=== PATIENT | female | born 2000 | race Caucasian/White ===

== ENCOUNTER → 2021-02-02 | Outpatient (CLI) | payer SELFPAY ==
[2021-02-02 16:40] LABS: HEMATOCRIT 43 % (35-52); HEMOGLOBIN 14.6 g/dL (11.5-16.0); MEAN CORPUSCULAR HEMOGLOBIN 30 pg (25-34); MEAN CORPUSCULAR VOLUME 87 fL (80-99); WHITE BLOOD COUNT 8.6 10^3/uL (4.3-11.0)
[2021-02-02 16:41] LABS: BASOPHILS # (AUTO) 0.1 10^3/uL (0.0-0.1); BASOPHILS % (AUTO) 1 % (0-10); EOSINOPHILS # (AUTO) 0.4 10^3/uL (0.0-0.3); EOSINOPHILS % (AUTO) 5 % (0-10); LYMPHOCYTES # (AUTO) 3.4 X 10^3 (1.0-4.0); LYMPHOCYTES % (AUTO) 40 % (12-44); MEAN CORPUSCULAR HGB CONC 34 g/dL (32-36); MEAN PLATELET VOLUME 9.1 fL (9.0-12.2); MONOCYTES # (AUTO) 0.6 X 10^3 (0.0-1.0); MONOCYTES % (AUTO) 8 % (0-12); NEUTROPHILS % (AUTO) 46 % (42-75); PLATELET COUNT 270 10^3/uL (130-400)
== END ==
LOC: LAB FS 15:00
PROVIDERS: ATTEND Family Medicine
DX: O20.0 Threatened abortion (principal); Z83.49 Family history of other endocrine, nutritional and metabolic diseases; Z3A.00 Weeks of gestation of pregnancy not specified
CPT/HCPCS: 36415; 84443; 84702; 85025; 86900; 86901

== ENCOUNTER → 2021-02-04 | Outpatient (CLI) | payer SELFPAY | LOC: LAB FS 11:12 | DX: O20.0 Threatened abortion (principal) | CPT/HCPCS: 36415; 84702 ==

== ENCOUNTER → 2021-02-10 | Outpatient (CLI) | payer SELFPAY | LOC: LAB FS 14:26 | PROVIDERS: ATTEND Family Medicine | DX: O20.0 Threatened abortion (principal) | CPT/HCPCS: 36415; 84702 ==

== ENCOUNTER → 2021-02-15 | Outpatient (CLI) | payer SELFPAY | LOC: LAB FS 16:39 | PROVIDERS: ATTEND Family Medicine | DX: O20.0 Threatened abortion (principal) | CPT/HCPCS: 36415; 84702; 86900; 86901 ==

== ENCOUNTER → 2021-02-16 | Outpatient (CLI) | payer SELFPAY | LOC: LABNPT 14:43 | PROVIDERS: ATTEND Family Medicine | DX: R10.9 Unspecified abdominal pain (principal) | CPT/HCPCS: 87088 ==

== ENCOUNTER → 2021-02-22 | Outpatient (CLI) | payer SELFPAY ==
[2021-02-22 12:45] LABS: HEMATOCRIT 40 % (35-52); HEMOGLOBIN 13.4 g/dL (11.5-16.0); MEAN CORPUSCULAR HEMOGLOBIN 29 pg (25-34); WHITE BLOOD COUNT 8.1 10^3/uL (4.3-11.0)
[2021-02-22 12:46] LABS: EOSINOPHILS % (AUTO) 2 % (0-10); LYMPHOCYTES % (AUTO) 36 % (12-44); MEAN CORPUSCULAR HGB CONC 33 g/dL (32-36); MEAN CORPUSCULAR VOLUME 87 fL (80-99); MEAN PLATELET VOLUME 8.6 fL (9.0-12.2); MONOCYTES % (AUTO) 5 % (0-12); NEUTROPHILS % (AUTO) 55 % (42-75); PLATELET COUNT 274 10^3/uL (130-400)
[2021-02-22 12:47] LABS: BASOPHILS % (AUTO) 1 % (0-10)
[2021-02-22 12:48] LABS: BASOPHILS # (AUTO) 0.1 10^3/uL (0.0-0.1); EOSINOPHILS # (AUTO) 0.2 10^3/uL (0.0-0.3); LYMPHOCYTES # (AUTO) 2.9 X 10^3 (1.0-4.0); MONOCYTES # (AUTO) 0.4 X 10^3 (0.0-1.0); NEUTROPHILS # (AUTO) 4.5 X 10^3 (1.8-7.8)
== END ==
LOC: LAB FS 11:46
PROVIDERS: ATTEND Family Medicine
DX: O03.9 Complete or unspecified spontaneous abortion without complication (principal)
CPT/HCPCS: 36415; 84702; 85025

== ENCOUNTER 2022-02-10 18:27 | Emergency (ER) | payer OTHER ==
[2022-02-10 18:39] VITALS: BP 132/85
--- NOTE | 2022-02-10 18:45 | ED GU-Female ---
General Chief Complaint: - Reproductive Stated Complaint: ABNORMAL VAGINAL BLEEDING History of Present Illness Date Seen by Provider: Feb 10, 2022 Time Seen by Provider: 18:45 Initial Comments 21-year-old female presents with abnormal vaginal bleeding. Patient reports that it started today. Patient reports that she had a normal menstrual cycle ended approximately 5 days ago. That she has had normal vaginal discharge until today when she started having her vaginal bleeding. Patient does note that e xactly 1 year ago she had a miscarriage and is under a lot of stress and anxiety today from that. Patient reports that she is has had a couple saturated pads today. Patient was seen in urgent care and sent here for further evaluation. Patient does not have any dizziness, nausea vomiting. She has not had intercourse for approximately 3 to 4 days. Patient has had multiple negative test with negative at home and negative at urgent care. Patient has very minimal cramping but no significant pain Allergies and Home Medications Allergies Coded Allergies: No Known Drug Allergies (Unverified , 02/10/22) Patient Home Medication List Home Medication List Reviewed: Yes Review of Systems Review of Systems Constitutional: no symptoms reported EENTM: no symptoms reported Respiratory: no symptoms reported Cardiovascular: no symptoms reported Gastrointestinal: no symptoms reported Genitourinary: see HPI : No Musculoskeletal: no symptoms reported Skin: no symptoms reported Psychiatric/Neurological: No Symptoms Reported Physical Exam Vital Signs Vital Signs - First Documented 02/10/22 18:39 Temp 36.8 Pulse 93 Resp 16 B/P (MAP) 132/85 (101) Pulse Ox 98 O2 Delivery Room Air Capillary Refill : Height, Weight, BMI Height: '" Weight: lbs. oz. kg; BMI Method: General Appearance: WD/WN, no apparent distress Cardiovascular: normal peripheral pulses, regular rate, rhythm Respiratory: lungs clear, normal breath sounds Gastrointestinal: non tender, soft Pelvic: other (Pelvic exam deferred) Back: normal inspection Extremities: normal range of motion Neurologic/Psychiatric: alert, oriented x 3, other (Mildly anxious and easily tearful) Skin: normal color, warm/dry Progress/Results/Core Measures Suspected Sepsis SIRS Temperature: Pulse: Respiratory Rate: Laboratory Tests 02/10/22 18:52: White Blood Count 8.4 Blood Pressure / Mean: Laboratory Tests 02/10/22 18:52: Creatinine 0.87, Platelet Count 269 Results/Orders Lab Results Laboratory Tests Test 02/10/22 18:44 9/8/22 18:52 Range/Units Urine Color YELLOW Urine Clarity CLEAR Urine pH 5.5 5-9 Urine Specific Mobile <=1.005 1.016-1.022 Urine Protein NEGATIVE NEGATIVE Urine Glucose (UA) NEGATIVE NEGATIVE Urine Ketones NEGATIVE NEGATIVE Urine Nitrite NEGATIVE NEGATIVE Urine Bilirubin NEGATIVE NEGATIVE Urine Urobilinogen 0.2 < = 1.0 MG/DL Urine Leukocyte Esterase NEGATIVE NEGATIVE Urine RBC (Auto) 2+ H NEGATIVE Urine RBC 0-2 /HPF Urine WBC 0-2 /HPF Urine Squamous Epithelial Cells 0-2 /HPF Urine Crystals NONE /LPF Urine Bacteria NEGATIVE /HPF Urine Casts NONE /LPF Urine Mucus NEGATIVE /LPF Urine Culture Indicated NO White Blood Count 8.4 4.3-11.0 10^3/uL Red Blood Count 5.55 H 3.80-5.11 10^6/uL Hemoglobin 16.1 H 11.5-16.0 g/dL Hematocrit 48 35-52 % Mean Corpuscular Volume 86 80-99 fL Mean Corpuscular Hemoglobin 29 25-34 pg Mean Corpuscular Hemoglobin Concent 34 32-36 g/dL Red Cell Distribution Width 12.2 10.0-14.5 % Platelet Count 269 130-400 10^3/uL Mean Platelet Volume 8.7 L 9.0-12.2 fL Immature Granulocyte % (Auto) 0 % Neutrophils (%) (Auto) 35 L 42-75 % Lymphocytes (%) (Auto) 50 H 12-44 % Monocytes (%) (Auto) 7 0-12 % Eosinophils (%) (Auto) 7 0-10 % Basophils (%) (Auto) 2 0-10 % Neutrophils # (Auto) 3.0 1.8-7.8 10^3/uL Lymphocytes # (Auto) 4.2 H 1.0-4.0 10^3/uL Monocytes # (Auto) 0.6 0.0-1.0 10^3/uL Eosinophils # (Auto) 0.6 H 0.0-0.3 10^3/uL Basophils # (Auto) 0.1 0.0-0.1 10^3/uL Immature Granulocyte # (Auto) 0.0 0.0-0.1 10^3/uL Sodium Level 140 135-145 MMOL/L Potassium Level 3.5 L 3.6-5.0 MMOL/L Chloride Level 104 98-107 MMOL/L Carbon Dioxide Level 24 21-32 MMOL/L Anion Gap 12 5-14 MMOL/L Blood Urea Nitrogen 11 7-18 MG/DL Creatinine 0.87 0.60-1.30 MG/DL Estimat Glomerular Filtration Rate 97 BUN/Creatinine Ratio 13 Glucose Level 93 70-105 MG/DL Calcium Level 10.1 8.5-10.1 MG/DL My Orders Orders - MUNIR ROBLES DO Basic Metabolic Panel (02/10/22 19:05) Cbc With Automated Diff (02/10/22 19:05) Ua Culture If Indicated (02/10/22 19:05) Vital Signs/I&O 02/10/22 18:39 Temp 36.8 Pulse 93 Resp 16 B/P (MAP) 132/85 (101) Pulse Ox 98 O2 Delivery Room Air Capillary Refill : Progress Note : Progress Note Patient with a 16.1 hemoglobin. Discussed with her that this time we are is no need for emergent ultrasound. She can use 400 mg ibuprofen every 6-8 hours as needed for cramping to help with the bleeding. Recommend she follow-up with Dr. Joy or vice president medical affairs of her choice for further evaluation if symptoms do not ceasing over the next 2 to 3 days or if they become heavier. She can return to the ER as needed. Discussed return precautions. Patient was stable and discharged Departure Impression Primary Impression: Abnormal vaginal bleeding Disposition: 01 HOME, SELF-CARE Condition: Stable Departure-Patient Inst. Referrals: MARLI JOY MD (PCP/Family) Primary Care Physician Patient Instructions: Absent or Irregular Periods, Heavy Periods ED Add. Discharge Instructions: Please follow-up with vice president medical affairs of your choice or your primary care provider in the next day or 2 Ibuprofen 400 mg every 6 hours for pain cramping and help with the bleeding Return to the ER as needed over the week All discharge instructions reviewed with patient and/or family. Voiced understanding. MUNIR ROBLES DO Feb 10, 2022 18:45
[2022-02-10 19:15] LABS: BASOPHILS # (AUTO) 0.1 10^3/uL (0.0-0.1); BASOPHILS % (AUTO) 2 % (0-10); EOSINOPHILS # (AUTO) 0.6 10^3/uL (0.0-0.3); EOSINOPHILS % (AUTO) 7 % (0-10); HEMATOCRIT 48 % (35-52); HEMOGLOBIN 16.1 g/dL (11.5-16.0); LYMPHOCYTES # (AUTO) 4.2 10^3/uL (1.0-4.0); LYMPHOCYTES % (AUTO) 50 % (12-44); MEAN CORPUSCULAR HEMOGLOBIN 29 pg (25-34); MEAN CORPUSCULAR HGB CONC 34 g/dL (32-36); MEAN CORPUSCULAR VOLUME 86 fL (80-99); MEAN PLATELET VOLUME 8.7 fL (9.0-12.2); MONOCYTES # (AUTO) 0.6 10^3/uL (0.0-1.0); MONOCYTES % (AUTO) 7 % (0-12); NEUTROPHILS % (AUTO) 35 % (42-75); PLATELET COUNT 269 10^3/uL (130-400); WHITE BLOOD COUNT 8.4 10^3/uL (4.3-11.0)
[2022-02-10 19:22] LABS: BILIRUBIN,URINE NEGATIVE (NEGATIVE); CLARITY,URINE CLEAR; COLOR,URINE YELLOW; GLUCOSE, URINE (UA) NEGATIVE (NEGATIVE); KETONES,URINE NEGATIVE (NEGATIVE); LEUKOCYTE ESTERASE ,URINE NEGATIVE (NEGATIVE); NITRITE,URINE NEGATIVE (NEGATIVE); PH,URINE 5.5 (5-9); PROTEIN,URINE NEGATIVE (NEGATIVE)
[2022-02-10 19:39] LABS: BACTERIA,URINE NEGATIVE /HPF; RBC,URINE 0-2 /HPF; SQUAMOUS EPITHELIAL CELL,UR 0-2 /HPF; WBC,URINE 0-2 /HPF
[2022-02-10 19:41] LABS: CALCIUM 10.1 MG/DL (8.5-10.1); CREATININE SERUM 0.87 MG/DL (0.60-1.30); POTASSIUM 3.5 MMOL/L (3.6-5.0)
[2022-02-11] MEDS ORDERED: TRAN650T5 PO (16:51)
== END 2022-02-10 20:00 | disposition home or self-care (01) ==
LOC: EDUNIT# 18:27 → ER FS 18:28
DX: N93.9 Abnormal uterine and vaginal bleeding, unspecified (principal); Z28.310 Unvaccinated for COVID-19
CPT/HCPCS: 36415; 80048; 81000; 84703; 85025; 99282

== ENCOUNTER 2022-02-11 14:12 | Emergency (ER) | payer OTHER ==
[~2022-02-11] VITALS: Ht 157 cm; Wt 62.1 kg
--- NOTE | 2022-02-11 14:50 | ED GU-Female ---
General Chief Complaint: - Reproductive Stated Complaint: VAGINAL BLEEDING Nursing Triage Note: PT PRESENTS TO ED VIA POV FROM HOME WITH COMPLAINTS OF LOWER ABDOMINAL PAIN/CRAMPING AND ABNORMAL VAGINAL BLEEDING. PT WAS SEEN IN [facility] ED YESTERAY. Source: patient Exam Limitations: no limitations History of Present Illness Date Seen by Provider: Feb 11, 2022 Time Seen by Provider: 14:50 Initial Comments To ER with heavy vaginal bleeding using about 1 pad per hour. She was seen at the emergency room [place] last night for the same and had normal hemoglobin on evaluation. She has had a history of menorrhagia about 2 years ago after her miscarriage but has not had any issues for 2 years. She denies any pain. She does have some lightheadedness starting today. She is a non-smoker. Denies any known clotting disorders. Does not have a medical terminologist. This episode of heavy bleeding started yesterday, her last menstrual period was 5 days ago and was normal for her. Timing/Duration: constant Severity/Quality: moderate Location: vaginal Radiation: none Activities at Onset: none Prior Genitourinary Problems: none Associated Symptoms: denies symptoms Allergies and Home Medications Allergies Coded Allergies: No Known Drug Allergies (Unverified , 02/10/22) Patient Home Medication List Home Medication List Reviewed: Yes Review of Systems Review of Systems Constitutional: see HPI EENTM: see HPI Respiratory: no symptoms reported Cardiovascular: no symptoms reported Genitourinary: see HPI Musculoskeletal: no symptoms reported Skin: no symptoms reported Psychiatric/Neurological: No Symptoms Reported Past [id number] Hx Past Medical History Surgery/Hospitalization HX: Appendectomy; Miscarriage Physical Exam Vital Signs Vital Signs - First Documented 02/11/22 14:35 Temp 36.5 Pulse 76 Resp 18 B/P (MAP) 129/83 (98) Pulse Ox 100 Capillary Refill : Less Than 3 Seconds Height, Weight, BMI Height: '" Weight: lbs. oz. kg; 25.00 BMI Method: General Appearance: WD/WN, no apparent distress, other (Alert and oriented pleasant no distress hemodynamically stable without tachycardia or hypotension) Neck: non-tender, full range of motion Respiratory: no respiratory distress, no accessory muscle use Gastrointestinal: normal bowel sounds, non tender Pelvic: normal external exam, other (Exam done with Vivienne LOUIS at the bedside. Dark clotted blood in the vaginal vault. Appearance of cervical ectropion.) Extremities: normal range of motion, non-tender Neurologic/Psychiatric: alert, normal mood/affect, oriented x 3 Skin: normal color, warm/dry Progress/Results/Core Measures Suspected Sepsis SIRS Temperature: Pulse: 76 Respiratory Rate: 18 Laboratory Tests 02/11/22 14:50: White Blood Count 7.9 Blood Pressure 129 /83 Mean: 98 Laboratory Tests 02/11/22 14:50: INR Comment 1.0, Platelet Count 258 Results/Orders Lab Results Laboratory Tests Test 02/11/22 14:50 Range/Units White Blood Count 7.9 4.3-11.0 10^3/uL Red Blood Count 5.29 H 3.80-5.11 10^6/uL Hemoglobin 15.3 11.5-16.0 g/dL Hematocrit 46 35-52 % Mean Corpuscular Volume 87 80-99 fL Mean Corpuscular Hemoglobin 29 25-34 pg Mean Corpuscular Hemoglobin Concent 33 32-36 g/dL Red Cell Distribution Width 12.2 10.0-14.5 % Platelet Count 258 130-400 10^3/uL Mean Platelet Volume 8.7 L 9.0-12.2 fL Immature Granulocyte % (Auto) 0 % Neutrophils (%) (Auto) 43 42-75 % Lymphocytes (%) (Auto) 45 H 12-44 % Monocytes (%) (Auto) 6 0-12 % Eosinophils (%) (Auto) 5 0-10 % Basophils (%) (Auto) 2 0-10 % Neutrophils # (Auto) 3.4 1.8-7.8 10^3/uL Lymphocytes # (Auto) 3.6 1.0-4.0 10^3/uL Monocytes # (Auto) 0.5 0.0-1.0 10^3/uL Eosinophils # (Auto) 0.4 H 0.0-0.3 10^3/uL Basophils # (Auto) 0.1 0.0-0.1 10^3/uL Immature Granulocyte # (Auto) 0.0 0.0-0.1 10^3/uL Prothrombin Time 13.7 12.2-14.7 SEC INR Comment 1.0 0.8-1.4 Activated Partial Thromboplast Time 33 24-35 SEC Serum Test, Qualitative NEGATIVE NEGATIVE My Orders Orders - WHITESIDE,[employer] DEVELOPER Hcg,Qualitative Serum (02/11/22 14:33) Cbc With Automated Diff (02/11/22 14:33) Protime With Inr (02/11/22 14:33) Partial Thromboplastin Time (02/11/22 14:33) Us Non Ob Pelvis Comp/Transvag (02/11/22 14:33) Wet Prep (02/11/22 16:28) Chlamydia Trachomatis Swab (02/11/22 16:28) Neisseria Gonorrhea Swab (02/11/22 16:28) Genital Culture (02/11/22 16:28) Vital Signs/I&O 02/11/22 14:35 Temp 36.5 Pulse 76 Resp 18 B/P (MAP) 129/83 (98) Pulse Ox 100 Capillary Refill : Less Than 3 Seconds Blood Pressure Mean: 98 Departure Impression Primary Impression: Abnormal vaginal bleeding Disposition: 01 HOME, SELF-CARE Condition: Stable Departure-Patient Inst. Decision time for Depature: 16:50 Referrals: MARLI JOY MD (PCP/Family) Primary Care Physician ANA UGALDE MD,JESSICA FRANKEL MD, KARI E MD Patient Instructions: IRREGULAR VAGINAL BLEEDING Add. Discharge Instructions: 1. Return to ER for any concerns. Call the medical terminologist of your choosing next week to make an appointment to be seen. Return to ER for any worsening symptoms. Take medication as directed starting this evening. All discharge instructions reviewed with patient and/or family. Voiced understanding. Scripts Tranexamic Acid (Tranexamic Acid) 650 Mg Tablet 1300 MG PO TID, #18 TAB Prov: VANDANA WHITESIDE APRN 02/11/22 VANDANA WHITESIDE APRN Feb 11, 2022 14:50
[2022-02-11 14:55] LABS: BASOPHILS # (AUTO) 0.1 10^3/uL (0.0-0.1); BASOPHILS % (AUTO) 2 % (0-10); EOSINOPHILS # (AUTO) 0.4 10^3/uL (0.0-0.3); EOSINOPHILS % (AUTO) 5 % (0-10); HEMATOCRIT 46 % (35-52); HEMOGLOBIN 15.3 g/dL (11.5-16.0); LYMPHOCYTES # (AUTO) 3.6 10^3/uL (1.0-4.0); LYMPHOCYTES % (AUTO) 45 % (12-44); MEAN CORPUSCULAR HEMOGLOBIN 29 pg (25-34); MEAN CORPUSCULAR HGB CONC 33 g/dL (32-36); MEAN CORPUSCULAR VOLUME 87 fL (80-99); MEAN PLATELET VOLUME 8.7 fL (9.0-12.2); MONOCYTES # (AUTO) 0.5 10^3/uL (0.0-1.0); MONOCYTES % (AUTO) 6 % (0-12); NEUTROPHILS # (AUTO) 3.4 10^3/uL (1.8-7.8); NEUTROPHILS % (AUTO) 43 % (42-75); PLATELET COUNT 258 10^3/uL (130-400); WHITE BLOOD COUNT 7.9 10^3/uL (4.3-11.0)
[2022-02-11 15:07] LABS: PROTHROMBIN TIME PATIENT 13.7 SEC (12.2-14.7)
--- NOTE | 2022-02-11 15:36 | Diagnostic Imaging Report ---
PROCEDURE: US Non-OB pelvis comp/trans. TECHNIQUE: Multiple real-time grayscale images were obtained of the pelvis in various projections endovaginally. Transabdominal imaging was also performed. INDICATION: Vaginal bleeding. COMPARISON: None Available FINDINGS: Transabdominal: The uterus and adnexa have an unremarkable transabdominal appearance. Transvaginal images were obtained for additional characterization. Transvaginal: The uterus is anteverted and measures 6.1 x 3.0 x 4.3 cm. The endometrial stripe measures 0.2 cm and has a normal appearance. The right ovary is well visualized measuring 3.0 x 1.8 x 2.9 cm and demonstrating normal color Doppler flow. The left ovary is well-visualized measuring 3.3 x 2.1 x 2.8 cm with normal color Doppler flow. No adnexal masses. No free fluid is seen in the pelvis. IMPRESSION: 1. Unremarkable appearance of the uterus and ovaries. No adnexal mass or free fluid. No evidence of torsion. Dictated by: Dictated on workstation # [id number]
[2022-02-11] MEDS ORDERED: TRAN650T5 PO (16:51)
[2022-02-11 17:01] VITALS: BP 120/85
== END 2022-02-11 17:01 | disposition home or self-care (01) ==
LOC: EDUNIT# 14:12 → ER 14:19
DX: N93.9 Abnormal uterine and vaginal bleeding, unspecified (principal); Z28.310 Unvaccinated for COVID-19
CPT/HCPCS: 36415; 76830; 76856; 84703; 85025; 85610; 85730; 87070; 87205; 87210; 87491; 87591